=== PATIENT | female | born 1955 | race Caucasian/White ===

== ENCOUNTER → 2017-02-10 | Day surgery (SDC) | payer OTHER ==
[~2017-02-10] MED LIST: ASPI-630 PO; HYDROmorphone 2 MG/ML VIAL IV PRN; IV RINGERS,LACTATED 1000ML 1,000 ML IV SCH; LEVO88TA4 PO; LIDOCAINE 1% 1 ML SYRINGE. ID PRN; MORPHINE SULFATE 2 MG/ML DISP.SYRIN. IV PRN; ONDANSETRON PF 4 MG/2 ML VIAL. IV PRN; PROCHLORPERAZINE 10 MG/2 ML VIAL. IV PRN; PROPOFOL 20 ML IV ONE; SIMV20TA3 PO; SITA1TAB7 PO; fentaNYL PF VIAL 100 MCG/2 ML VIAL IV PRN
[2017-02-10 10:40] VITALS: BP 136/96
--- NOTE | 2017-02-13 16:47 | PATHOLOGY ---
PATHOLOGY REPORT * * * * * * * * FINAL DIAGNOSIS: Colorectal biopsies, rectal polyps: - Hyperplastic polyps. COMMENT: There are no adenomatous changes or evidence of malignancy. (JPM:mml; d/t: 02/13/2017) REPORT ELECTRONICALLY SIGNED BY: Brian Quintero M.D. DATE/TIME: 02/13/2017 16:47 * * * * * * * * GROSS PATHOLOGY: Received in formalin labeled "Ann-Marie Harris, biopsy rectal polyps," are three segments of davila soft tissue measuring from 0.2 up to 0.5 cm in maximum dimension. The specimen is submitted entirely in cassette A1. (JPM; 02/10/17) INITIAL CPT CODE(S): A; 50363 Professional services performed [place] [address] Technical services performed by [facility] at [address] [place] [address]. Felipe Rojo fax: SPECIMEN(S) RECEIVED: A.Biopsy rectal polyp CLINICAL HISTORY: History of colon polyps PATIENT: ANN-MARIE HARRIS /AGE: 109/06/1955 (Age: 61) PATIENT #: [id number] ALT CASE #: SPECIMEN COLLECTION DATE: 02/10/2017 SPECIMEN RECEIVED DATE: 02/10/2017 [facility] - [address] [place] [address] - PHONE: [phone] * * * END OF REPORT * * *
== END | disposition home or self-care (01) ==
LOC: ENDOS 08:20
PROVIDERS: ATTEND Internal Medicine Gastroenterology
DX: Z09 Encounter for follow-up examination after completed treatment for conditions other than malignant neoplasm (principal); Z86.010 Personal history of colon polyps; K64.0 First degree hemorrhoids; K62.1 Rectal polyp; K57.30 Diverticulosis of large intestine without perforation or abscess without bleeding; E03.9 Hypothyroidism, unspecified; E78.5 Hyperlipidemia, unspecified; Z83.3 Family history of diabetes mellitus; Z72.89 Other problems related to lifestyle; Z98.51 Tubal ligation status
CPT/HCPCS: 45380; 88305; J2704